=== PATIENT | female | born 2000 | race Caucasian/White ===

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

== ENCOUNTER 2019-03-18 18:19 | Emergency (ER) | payer SELFPAY ==
[2019-03-18] MEDS ORDERED: Alum Hydrox/Mag Hydrox/Simeth 30 ML, Lidocaine 2% 15 ML PO ONE ×2 (18:36)
[2019-03-18] MEDS ORDERED: Sodium Chloride 0.9% 10 ML Syringe FLUSH PRN (18:36)
--- NOTE | 2019-03-18 18:47 | EDM.PDOC ---
ED HPI GENERAL MEDICAL PROBLEM - General Chief Complaint: Chest Pain Stated Complaint: CHEST PAIN/ANXIETY Time Seen by Provider: 03/18/19 18:31 Source of Information: Reports: Patient History Limitations: Reports: No Limitations - History of Present Illness INITIAL COMMENTS - FREE TEXT/NARRATIVE: Since unfortunate 18-year-old female who presents emergency Department today with complaint of sharp sided left chest pain. Patient reports that symptoms started 2 years ago and progressively worsened since. That she has intermittent episodes of chest pain chest pains are sharp stabbing like pain nothing makes the pain better nothing makes the pain worse. The pains are intermittent she reports that she's been evaluated in the past for this and they "didn't find anything". She was placed on Zoloft for anxiety which did not help her symptoms at all. Left Chest Pain Score (Numeric/FACES): 8 - Related Data Allergies Allergy/AdvReac Type Severity Reaction Status Date / Time No Known Allergies Allergy Verified 03/18/19 18:33 Home Meds: Home Meds Norgestimate-Ethinyl Estradiol [Moore-Linyah 28 Tablet] 1 each PO DAILY 03/18/19 [History] Past Medical History - Past Health History Medical/Surgical History: Denies Medical/Surgical History - Infectious Disease History Infectious Disease History: Reports: None Social & Family History - Family History Family Medical History: Noncontributory - Tobacco Use Smoking Status *Q: Never Smoker - Caffeine Use Caffeine Use: Reports: Coffee, Energy Drinks - Recreational Drug Use Recreational Drug Use: No - Living Situation & Occupation Living situation: Reports: with Family Occupation: Student ED ROS GENERAL - Review of Systems Review Of Systems: See Below Constitutional: Denies: Fever, Chills Cardiovascular: Reports: Chest Pain ED EXAM, GENERAL - Physical Exam Exam: See Below Exam Limited By: No Limitations General Appearance: Alert, WD/WN, Anxious, Mild Distress Throat/Mouth: Normal Inspection, Normal Lips, Normal Teeth, Normal Gums, Normal Oropharynx, Normal Voice, No Airway Compromise Head: Atraumatic, Normocephalic Neck: Normal Inspection, Supple, Non-Tender, Full Range of Motion Respiratory/Chest: No Respiratory Distress, Lungs Clear, Normal Breath Sounds, No Accessory Muscle Use, Chest Non-Tender Cardiovascular: Normal Peripheral Pulses, Regular Rate, Rhythm, No Edema, No Gallop, No JVD, No Murmur, No Rub GI/Abdominal: Normal Bowel Sounds, Soft, Tender (Moderate right upper quadrant, moderate epigastric negative Mathews's) Back Exam: Normal Inspection, Full Range of Motion, NT Extremities: Normal Inspection, Normal Range of Motion, Non-Tender, Normal Capillary Refill, No Pedal Edema Neurological: Alert Skin Exam: Warm, Dry EKG INTERPRETATION EKG Date: 03/18/19 Time: 18:47 Rhythm: NSR Rate (Beats/Min): 88 Delton: Normal P-Wave: Present QRS: Normal ST-T: Normal QT: Normal Course - Vital Signs Last Recorded V/S: Last Vital Signs Temp 97.9 F 03/18/19 18:30 Pulse 90 03/18/19 18:30 Resp 16 03/18/19 18:30 BP 139/83 03/18/19 18:30 Pulse Ox 100 03/18/19 18:30 - Orders/Labs/Meds Orders: Active Orders 24 hr Category Date Time Status EKG Documentation Completion [RC] ASDIRECTED Care 03/18/19 18:36 Active Chest 2V [CR] Stat Exams 03/18/19 18:35 Taken Sodium Chloride 0.9% [Saline Flush] Med 03/18/19 18:36 Active 10 ml FLUSH ASDIRECTED PRN Saline Lock Insert [OM.PC] Stat Oth 03/18/19 18:36 Ordered EKG 12 Lead [EK] Stat Ther 03/18/19 18:35 Ordered Medication Orders Sodium Chloride (Saline Flush) 10 ml FLUSH ASDIRECTED PRN PRN Reason: Keep Vein Open Labs: Laboratory Tests 03/18/19 03/18/19 03/18/19 Range/Units 19:00 19:00 19:00 WBC 9.16 (3.98-10.04) K/mm3 RBC 4.59 (3.98-5.22) M/mm3 Hgb 13.3 (11.2-15.7) gm/dl Hct 38.9 (34.1-44.9) % MCV 84.7 (79.4-94.8) fl MCH 29.0 (25.6-32.2) pg MCHC 34.2 (32.2-35.5) g/dl RDW Std Deviation 36.9 (36.4-46.3) fL Plt Count 289 (182-369) K/mm3 MPV 10.4 (9.4-12.3) fl Neut % (Auto) 51.3 (34.0-71.1) % Lymph % (Auto) 40.1 (19.3-51.7) % Moore % (Auto) 5.7 (4.7-12.5) % Eos % (Auto) 2.6 (0.7-5.8) Baso % (Auto) 0.2 (0.1-1.2) % Neut # (Auto) 4.70 (1.56-6.13) K/mm3 Lymph # (Auto) 3.67 (1.18-3.74) K/mm3 Moore # (Auto) 0.52 H (0.24-0.36) K/mm3 Eos # (Auto) 0.24 (0.04-0.36) K/mm3 Baso # (Auto) 0.02 (0.01-0.08) K/mm3 Sodium 139 (136-145) mEq/L Potassium 3.3 L (3.5-5.1) mEq/L Chloride 102 (98-107) mEq/L Carbon Dioxide 25 (21-32) mEq/L Anion Gap 15.3 H (5-15) BUN 11 (7-18) mg/dL Creatinine 0.8 (0.55-1.02) mg/dL Est Cr Clr Drug Dosing 97.67 mL/min Estimated GFR (MDRD) > 60 (>60) mL/min BUN/Creatinine Ratio 13.8 L (14-18) Glucose 75 (74-106) mg/dL Calcium 9.5 (8.5-10.1) mg/dL Total Bilirubin 0.2 (0.2-1.0) mg/dL AST 19 (15-37) U/L ALT 22 (14-59) U/L Alkaline Phosphatase 69 (46-116) U/L Troponin I < 0.017 (0.00-0.056) ng/mL Total Protein 8.0 (6.4-8.2) g/dl Albumin 3.8 (3.4-5.0) g/dl Globulin 4.2 gm/dL Albumin/Globulin Ratio 0.9 L (1-2) Lipase 107 (73-393) U/L HCG, Qual Negative (NEGATIVE) Urine Color (Yellow) Urine Appearance (Clear) Urine pH (5.0-8.0) Ur Specific Ord (1.005-1.030) Urine Protein (Negative) Urine Glucose (UA) (Negative) Urine Ketones (Negative) Urine Occult Blood (Negative) Urine Nitrite (Negative) Urine Bilirubin (Negative) Urine Urobilinogen (0.2-1.0) Ur Leukocyte Esterase (Negative) 03/18/19 Range/Units 19:35 WBC (3.98-10.04) K/mm3 RBC (3.98-5.22) M/mm3 Hgb (11.2-15.7) gm/dl Hct (34.1-44.9) % MCV (79.4-94.8) fl MCH (25.6-32.2) pg MCHC (32.2-35.5) g/dl RDW Std Deviation (36.4-46.3) fL Plt Count (182-369) K/mm3 MPV (9.4-12.3) fl Neut % (Auto) (34.0-71.1) % Lymph % (Auto) (19.3-51.7) % Moore % (Auto) (4.7-12.5) % Eos % (Auto) (0.7-5.8) Baso % (Auto) (0.1-1.2) % Neut # (Auto) (1.56-6.13) K/mm3 Lymph # (Auto) (1.18-3.74) K/mm3 Moore # (Auto) (0.24-0.36) K/mm3 Eos # (Auto) (0.04-0.36) K/mm3 Baso # (Auto) (0.01-0.08) K/mm3 Sodium (136-145) mEq/L Potassium (3.5-5.1) mEq/L Chloride (98-107) mEq/L Carbon Dioxide (21-32) mEq/L Anion Gap (5-15) BUN (7-18) mg/dL Creatinine (0.55-1.02) mg/dL Est Cr Clr Drug Dosing mL/min Estimated GFR (MDRD) (>60) mL/min BUN/Creatinine Ratio (14-18) Glucose (74-106) mg/dL Calcium (8.5-10.1) mg/dL Total Bilirubin (0.2-1.0) mg/dL AST (15-37) U/L ALT (14-59) U/L Alkaline Phosphatase (46-116) U/L Troponin I (0.00-0.056) ng/mL Total Protein (6.4-8.2) g/dl Albumin (3.4-5.0) g/dl Globulin gm/dL Albumin/Globulin Ratio (1-2) Lipase (73-393) U/L HCG, Qual (NEGATIVE) Urine Color Yellow (Yellow) Urine Appearance Clear (Clear) Urine pH 6.5 (5.0-8.0) Ur Specific Ord 1.020 (1.005-1.030) Urine Protein Negative (Negative) Urine Glucose (UA) Negative (Negative) Urine Ketones Negative (Negative) Urine Occult Blood Negative (Negative) Urine Nitrite Negative (Negative) Urine Bilirubin Negative (Negative) Urine Urobilinogen 0.2 (0.2-1.0) Ur Leukocyte Esterase Negative (Negative) Meds: Medications Generic Name Dose Route Start Last Admin Trade Name Freq PRN Reason Stop Dose Admin Sodium Chloride 10 ml 03/18/19 18:36 Saline Flush FLUSH ASDIRECTED PRN Keep Vein Open Discontinued Medications Generic Name Dose Route Start Last Admin Trade Name Freq PRN Reason Stop Dose Admin Al Hydroxide/Mg Hydroxide 30 0 ml 03/18/19 18:36 03/18/19 18:50 ml/ Lidocaine HCl 15 ml PO 03/18/19 18:37 45 ml ONETIME ONE Administration - Re-Assessments/Exams Free Text/Narrative Re-Assessment/Exam: 03/18/19 20:11 Chest x-ray interpreted by me NAD Free Text/Narrative Re-Assessment/Exam: 03/18/19 20:46 Symptoms have improved dramatically with GI cocktail and almost resolved we'll discharge to home and have patient follow up outpatient with PCP Departure - Departure Time of Disposition: 20:46 Disposition: Home, Self-Care 01 Condition: Good Clinical Impression: GERD (gastroesophageal reflux disease) Qualifiers: Esophagitis presence: with esophagitis Qualified Code(s): K21.0 - Gastro- esophageal reflux disease with esophagitis Instructions: Gastroesophageal Reflux Disease, Adult Referrals: Sera Amezcua MD [Primary Care Provider] - Forms: ED Department Discharge Additional Instructions: Home, rest, Prilosec OTC daily for one month, Tums as needed for pain, return as needed for worsening condition Sepsis Event Note - Evaluation Sepsis Screening Result: No Definite Risk - Focused Exam Vital Signs: Vital Signs Temp Pulse Resp BP Pulse Ox 03/18/19 18:30 97.9 F 90 16 139/83 100 Date Exam was Performed: 03/18/19 Time Exam was Performed: 20:46 - My Orders Last 24 Hours: My Active Orders 03/18/19 18:35 Chest 2V [CR] Stat EKG 12 Lead [EK] Stat 03/18/19 18:36 EKG Documentation Completion [RC] ASDIRECTED Sodium Chloride 0.9% [Saline Flush] 10 ml FLUSH ASDIRECTED PRN Saline Lock Insert [OM.PC] Stat - Assessment/Plan Last 24 Hours: My Active Orders 03/18/19 18:35 Chest 2V [CR] Stat EKG 12 Lead [EK] Stat 03/18/19 18:36 EKG Documentation Completion [RC] ASDIRECTED Sodium Chloride 0.9% [Saline Flush] 10 ml FLUSH ASDIRECTED PRN Saline Lock Insert [OM.PC] Stat
[2019-03-18 21:19] VITALS: BP 125/75; PULSE 85
--- NOTE | 2019-03-19 07:58 | CR ---
Chest: Two views of the chest were obtained. Comparison: No prior chest imaging is available. Heart size and mediastinum are normal. Lungs are clear. Bony structures are unremarkable. Impression: 1. Nothing acute is seen on two-view chest x-ray. Diagnostic code #1 This report was dictated in [place] Standard Time
== END 2019-03-18 21:17 | disposition home or self-care (01) ==
LOC: JD.ED 18:19
DX: F41.9 Anxiety disorder, unspecified (principal); Z79.899 Other long term (current) drug therapy; K21.0 Gastro-esophageal reflux disease with esophagitis
CPT/HCPCS: 36415; 71046; 80053; 81003; 83690; 84484; 84703; 85025; 93005; 99285; A9270; 93010; 99283

== ENCOUNTER 2020-01-09 12:18 | Emergency (ER) | payer BC ==
[2020-01-09 12:29] VITALS: BP 137/94; PULSE 126
[2020-01-09] MEDS ORDERED: LORazepam 2 MG/ML SDV IV PRN (13:11)
--- NOTE | 2020-01-09 13:11 | EDM.PDOC ---
ED HPI GENERAL MEDICAL PROBLEM - General Chief Complaint: Neurological Problem Stated Complaint: [facility] Time Seen by Provider: 01/09/20 12:56 Source of Information: Reports: Patient, EMS, Other History Limitations: Reports: No Limitations - History of Present Illness INITIAL COMMENTS - FREE TEXT/NARRATIVE: 19-year-old female presents to the ED per [facility] [place]. The history was provided by a friend who I was able to speak with on the phone. She indicates that they were delivering food at the mall today and Xiao stated that she started to feel unwell with nausea and pressure in the epigastrium. Once they got back to the operating center she started to feel lightheaded dizzy and then her eyes started to roll back up into her head and her friend aided her to the floor so that she did not fall. The plan was going to get her to sit in a chair but he never made it that far. When she got to the floor she was staring off into space and then started to have tonic-clonic movements involving all of her limbs that lasted about 45 seconds. She was then postictal for a good 10 to 15 minutes. When paramedics arrived they were able to get her up and able to walk her out to the ambulance. Patient has no recollection of what is happened to her. She denies losing control of her bowel or bladder. She is currently menstruating. She did not bite her tongue. She suffered no injuries and has no pain at this time Onset: Today, Sudden Onset Date: 01/09/20 Onset Time: 12:05 Duration: Minutes:, Improving Location: Reports: Generalized (History obtained from her friend who was with her at the time of the incident indicates that she indicated that she was not feeling well she was grabbing her chest at times feeling somewhat nauseated or a weird feeling in her stomach. As she was standing getting ready to sit down her eyes rolled back up into the her head and she was staring off into space and then she collapsed her friend aided her to the floor without falling or injury. When she was on the floor she was unresponsive to verbal and physical stimuli. She then developed generalized tonic-clonic seizure activity that lasted approximately 45 seconds. The patient of course has no recollection of what is happened to her. It was a good 15 minutes or so before she could talk and make sense and get up and start to move her limbs indicating that she was indeed postictal. She has never had a seizure before.) Quality: Reports: Other (Generalized tonic-clonic seizure) Severity: Moderate Improves with: Reports: Other (Improved by the time she got to the hospital she was able to walk to the ambulance.) Worsens with: Reports: None Context: Reports: Other (On scene his seizure recurrence this morning while in the workplace.). Denies: Activity, Exercise, Lifting, Sick Contact, Trauma Associated Symptoms: Reports: Confusion, Malaise, Weakness. 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 (see below) - Related Data Allergies Allergy/AdvReac Type Severity Reaction Status Date / Time No Known Allergies Allergy Verified 01/09/20 12:29 Home Meds: Home Meds norgestimate-ethinyl estradioL [Tensas-Linyah 28 Tablet] 1 each PO DAILY 03/18/19 [History] Past Medical History - Past Health History Medical/Surgical History: Denies Medical/Surgical History - Infectious Disease History Infectious Disease History: Reports: None Social & Family History - Family History Family Medical History: No Pertinent Family History - Tobacco Use Tobacco Use Status *Q: Never Tobacco User Second Hand Smoke Exposure: No - Caffeine Use Caffeine Use: Reports: None - Recreational Drug Use Recreational Drug Use: No - Living Situation & Occupation Living situation: Reports: with Family Occupation: Student ED ROS GENERAL - Review of Systems Review Of Systems: See Below Constitutional: Reports: Malaise, Weakness, Fatigue, Weight Loss. Denies: Fever, Chills HEENT: Reports: No Symptoms Respiratory: Reports: No Symptoms Cardiovascular: Reports: Chest Pain (Getting sharp stabbing chest pains off and on for several months. Told it was heartburn. Clinically it is more of a pleurodynia likely from inflammation of the). Denies: Dyspnea on Exertion, Palpitations ( periosteum of the ribs as it is in the midclavicular line primarily on the left side.) Endocrine: Reports: No Symptoms GI/Abdominal: Reports: No Symptoms : Reports: Other Musculoskeletal: Reports: No Symptoms (Early on her menstrual cycle. On time and as expected.) Skin: Reports: No Symptoms Neurological: Reports: Confusion. Denies: Headache (As to what is happened to her.) Psychiatric: Reports: Anxiety Hematologic/Lymphatic: Reports: No Symptoms Immunologic: Reports: No Symptoms - Physical Exam Exam: See Below Exam Limited By: No Limitations General Appearance: Alert, WD/WN, Anxious, Mild Distress (Since she cannot remember what is happened to her.), Other (Temperature is 36.4 heart rate 126 in sinus respiratory rate is 26 with O2 sats 100% on room air BP 1 3794.) Eye Exam: Bilateral Eye: Normal Inspection, PERRL Ears: Normal TMs Throat/Mouth: Normal Inspection, Normal Lips, Normal Teeth, Normal Oropharynx. No: Evidence of Tongue Biting Head Exam: Atraumatic, Normocephalic, Other Neck: Normal Inspection, Supple (No overt signs of any head or facial trauma.), Non-Tender, Full Range of Motion. No: Lymphadenopathy (L), Lymphadenopathy (R) Respiratory/Chest: No Respiratory Distress, Lungs Clear, Normal Breath Sounds, Chest Non-Tender Cardiovascular: Normal Peripheral Pulses, Regular Rate, Rhythm, No Edema, No Gallop, No Murmur, No Rub GI/Abdominal: Normal Bowel Sounds, Soft, Non-Tender, No Organomegaly, No Abnormal Bruit, No Mass, Pelvis Stable, Other (No surgical scars) Neuro Exam (Abbreviated): Alert, Oriented, CN II-XII Intact, Normal Cognition, Normal Gait, No Motor/Sensory Deficits DTR: 1+: Bicep (R), Bicep (L), Patella (R), Patella (L), Achilles (R), Achilles (L) Back Exam: Normal Inspection, Full Range of Motion. No: CVA Tenderness (L), CVA Tenderness (R) Extremities: Normal Inspection, Normal Range of Motion, Non-Tender, No Pedal Edema Psychiatric: Normal Affect, Normal Mood Skin Exam: Warm, Dry, Intact, Normal Color, No Rash #1 Interpretation EKG Date: 01/09/20 Time: 13:23 Rhythm: Other Rate (Beats/Min): 102 Vona: Normal P-Wave: Present QRS: Other (Initial poor R wave progression may be due to lead placement.) ST-T: Normal QT: Prolonged (Mildly prolonged) EKG Interpretation Comments: Borderline ECG Course - Vital Signs Last Recorded V/S: Last Vital Signs Temp 36.4 C 01/09/20 12:26 Pulse 126 H 01/09/20 12:26 Resp 26 H 01/09/20 12:26 BP 137/94 H 01/09/20 12:26 Pulse Ox 100 01/09/20 12:26 Orthostatic Blood Pressure [ 145/73 Standing] Orthostatic Blood Pressure [ 136/83 Sitting] Orthostatic Blood Pressure [ 136/78 Supine] - Orders/Labs/Meds Orders: Active Orders 24 hr Category Date Time Status EKG Documentation Completion [RC] STAT Care 01/09/20 13:10 Active Head wo Cont [CT] Stat Exams 01/09/20 13:08 Taken Dextrose 5%-0.9% NaCl [Dextrose 5%-Normal Saline] 1,000 Med 01/09/20 13:15 Active ml IV ASDIRECTED LORazepam [Ativan] Med 01/09/20 13:11 Active 1 mg IV Q6H PRN Medication Orders Dextrose/Sodium Chloride (Dextrose 5%-Normal Saline) 1,000 mls @ 125 mls/hr IV ASDIRECTED PAULINA Last Admin: 01/09/20 13:33 Dose: 125 mls/hr Documented by: CHANO Lorazepam (Ativan) 1 mg IV Q6H PRN PRN Reason: Anxiety Last Admin: 01/09/20 13:33 Dose: 1 mg Documented by: CHANO Labs: Laboratory Tests 01/09/20 01/09/20 01/09/20 Range/Units 13:50 13:50 13:50 WBC 8.86 (3.98-10.04) K/mm3 RBC 4.39 (3.98-5.22) M/mm3 Hgb 12.7 (11.2-15.7) gm/dl Hct 38.1 (34.1-44.9) % MCV 86.8 (79.4-94.8) fl MCH 28.9 (25.6-32.2) pg MCHC 33.3 (32.2-35.5) g/dl RDW Std Deviation 39.9 (36.4-46.3) fL Plt Count 250 (182-369) K/mm3 MPV 9.9 (9.4-12.3) fl Neut % (Auto) 76.7 H (34.0-71.1) % Lymph % (Auto) 16.8 L (19.3-51.7) % [place] % (Auto) 5.5 (4.7-12.5) % Eos % (Auto) 0.7 (0.7-5.8) Baso % (Auto) 0.2 (0.1-1.2) % Neut # (Auto) 6.79 H (1.56-6.13) K/mm3 Lymph # (Auto) 1.49 (1.18-3.74) K/mm3 [place] # (Auto) 0.49 H (0.24-0.36) K/mm3 Eos # (Auto) 0.06 (0.04-0.36) K/mm3 Baso # (Auto) 0.02 (0.01-0.08) K/mm3 Lactic Acid 1.6 (0.4-2.0) mmol/L Magnesium 2.0 (1.8-2.4) mg/dl Creatine Kinase 167 (26-192) U/L C-Reactive Protein 0.2 (<1.0) mg/dL HCG, Qual (NEGATIVE) Urine Color (Yellow) Urine Appearance (Clear) Urine pH (5.0-8.0) Ur Specific [place] (1.005-1.030) Urine Protein (Negative) Urine Glucose (UA) (Negative) Urine Ketones (Negative) Urine Occult Blood (Negative) Urine Nitrite (Negative) Urine Bilirubin (Negative) Urine Urobilinogen (0.2-1.0) Ur Leukocyte Esterase (Negative) Urine RBC (0-5) /hpf Urine WBC (0-5) /hpf Ur Squamous Epith Cells (0-5) /hpf Urine Bacteria (FEW) /hpf Urine Mucus (FEW) /hpf Urine Opiates Screen (EZWGZU=582) Ur Buprenorphine Scrn (CUTOFF=10) Ur Oxycodone Screen (VYD9RJ=377) Urine Methadone Screen (UJQDSF=980) Ur Propoxyphene Screen (LVXEUF=082) Ur Barbiturates Screen (HXUYNB=655) Ur Tricyclics Screen (THGZDK=325) Ur Phencyclidine Scrn (CUTOFF=25) Ur Amphetamine Screen (IZMACV=438) U Methamphetamines Scrn (QJYWEA=458) U Benzodiazepines Scrn (RHKCPE=561) U Cocaine Metab Screen (GABYUK=146) U Marijuana (THC) Screen (CUTOFF=50) 01/09/20 01/09/20 01/09/20 Range/Units 13:50 15:30 15:30 WBC (3.98-10.04) K/mm3 RBC (3.98-5.22) M/mm3 Hgb (11.2-15.7) gm/dl Hct (34.1-44.9) % MCV (79.4-94.8) fl MCH (25.6-32.2) pg MCHC (32.2-35.5) g/dl RDW Std Deviation (36.4-46.3) fL Plt Count (182-369) K/mm3 MPV (9.4-12.3) fl Neut % (Auto) (34.0-71.1) % Lymph % (Auto) (19.3-51.7) % [place] % (Auto) (4.7-12.5) % Eos % (Auto) (0.7-5.8) Baso % (Auto) (0.1-1.2) % Neut # (Auto) (1.56-6.13) K/mm3 Lymph # (Auto) (1.18-3.74) K/mm3 [place] # (Auto) (0.24-0.36) K/mm3 Eos # (Auto) (0.04-0.36) K/mm3 Baso # (Auto) (0.01-0.08) K/mm3 Lactic Acid (0.4-2.0) mmol/L Magnesium (1.8-2.4) mg/dl Creatine Kinase (26-192) U/L C-Reactive Protein (<1.0) mg/dL HCG, Qual Negative (NEGATIVE) Urine Color Yellow (Yellow) Urine Appearance Clear (Clear) Urine pH 8.0 (5.0-8.0) Ur Specific [place] 1.020 (1.005-1.030) Urine Protein 1+ H (Negative) Urine Glucose (UA) Negative (Negative) Urine Ketones Negative (Negative) Urine Occult Blood Negative (Negative) Urine Nitrite Negative (Negative) Urine Bilirubin Negative (Negative) Urine Urobilinogen 0.2 (0.2-1.0) Ur Leukocyte Esterase Negative (Negative) Urine RBC Not seen (0-5) /hpf Urine WBC 0-5 (0-5) /hpf Ur Squamous Epith Cells 0-5 (0-5) /hpf Urine Bacteria Few (FEW) /hpf Urine Mucus Few (FEW) /hpf Urine Opiates Screen Negative (BCNZPH=885) Ur Buprenorphine Scrn Negative (CUTOFF=10) Ur Oxycodone Screen Negative (YIY3SP=441) Urine Methadone Screen Negative (THNTWF=857) Ur Propoxyphene Screen Negative (VQTNAP=314) Ur Barbiturates Screen Negative (GOLPTM=081) Ur Tricyclics Screen Negative (RTSJBO=154) Ur Phencyclidine Scrn Negative (CUTOFF=25) Ur Amphetamine Screen Negative (HQVPGV=728) U Methamphetamines Scrn Negative (BSTTLC=274) U Benzodiazepines Scrn Negative (AEOVKA=026) U Cocaine Metab Screen Negative (VJSSIV=861) U Marijuana (THC) Screen Negative (CUTOFF=50) Meds: Medications Generic Name Dose Route Start Last Admin Trade Name Freq PRN Reason Stop Dose Admin Dextrose/Sodium Chloride 1,000 mls @ 125 mls/hr 01/09/20 13:15 01/09/20 13:33 Dextrose 5%-Normal Saline IV 125 mls/hr ASDIRECTED PAULINA Administration Lorazepam 1 mg 01/09/20 13:11 01/09/20 13:33 Ativan IV 1 mg Q6H PRN Administration Anxiety - Radiology Interpretation Free Text/Narrative:: 19-year-old female brought to the ED by [facility] after she [place] the [place]. I obtained the history from a friend who was with her the whole time of this incident. She indicated that Xiao indicated she was not feeling well she had a funny feeling in the pit of her stomach perhaps some nausea and they went back to where the started serving food from. She started to feel lightheaded and they were going to have her sit down when she suddenly seemed to stare off into space and collapse. Her friend caught her and aided her to the ground so she did not fall or get hurt. Her eyes rolled back into her head and shortly thereafter she moaned and then exhibited tonic-clonic seizure activity in all 4 limbs. This was estimated to have lasted about 45 seconds. The patient has no recollection of what is happened to her and she has never had a previous seizure. She is currently menstruating. She is on no medications that would lower her seizure threshold she denies any street drug use. Plan I am going to give her Ativan 1 mg IV as she is still quite anxious. Tachypneic at 26/min tachycardic at 126/min. IV D5 normal saline. She admits that she did have cereal for breakfast this morning. Will have CT head performed and routine labs collected and a urine drug screen. - Re-Assessments/Exams Free Text/Narrative Re-Assessment/Exam: 01/09/20 14:22 Hematology is back revealing a normal white count at 8.86. It is showing 76.7% neutrophils on the auto differential. Hemoglobin is 12.7 with hematocrit of 38.1. Platelet counts 250,000. The scan of the brain reveals it to be normal with no hemorrhage and no unremarkable white matter disease. No mass-effect no ventriculomegaly. Bones show no acute fractures. Visualized sinuses are unremarkable no fluid levels no acute intracranial abnormality appreciated 01/09/20 15:49 Lactic acid is elevated at 1.6 which more or less suggest she likely did suffer a short-lived seizure. Magnesium is 2.0 total CPK is 167 C- reactive protein is 0.2 beta hCG was negative. Urine is yellow 1+ proteinuria but no signs of infection. She will therefore be discharged to home. She is to make a follow-up appointment with her primary care physician to have an MRI as an outpatient and an ECG as an outpatient. Since it is her first seizure no antiseizure medication is indicated at this point time. She is advised to take precautions in terms that she should not drive a motor vehicle until after the above tests have been completed nor should she bathe unattended or swim in a swimming pool alone. Understood these instructions quite well. She will be off work for the next 3 to 4 days. She works for [employer] here in [place]. We will tentatively try and get her in for an EEG and an MRI as an outpatient and then have her follow-up with Dr. Caitlin Proctor who can arrange neurological consultation if needed. If both of those tests are normal then adopt a [id number] approach is usually indicated to see if another seizure occurs which would mean starting antiseizure medications. Be released in the care of a friend. Her mom is apparently out of the city at this time Departure - Departure Time of Disposition: 15:59 Disposition: Home, Self-Care 01 Condition: Fair Clinical Impression: New onset seizure without head trauma - Discharge Information *PRESCRIPTION DRUG MONITORING PROGRAM REVIEWED*: Not Applicable *COPY OF PRESCRIPTION DRUG MONITORING REPORT IN PATIENT WALLACE: Not Applicable Instructions: Seizure, Adult, [id number] Referrals: PCP,None [Primary Care Provider] - Forms: ED Department Discharge Additional Instructions: Evaluation in the emergency room today in regards to syncope collapse likely secondary to a [place] the mall today. Your friend who is with you was able to describe the events of what transpired and it definitely sounds like you experienced shaking movements in all of your extremities that lasted approximately 45 seconds after staring off into space and then suddenly collapsing. She caught you before you hit the floor and therefore you did not get hurt. She again indicated that your eyes rolled back in your head and then he became stiff and then diffuse developed clonic repetitive movements of all of your extremities which is a classic grand mal seizure. Investigations through the emergency room today by CT scan scan of the brain was completely normal no laboratory abnormalities were identified either. You require further investigations by way of an MRI of the brain and an EEG exam. If both of these are normal then we adopt a [id number]-bqt-[id number] approach as to whether or not you were going to ask parents another seizure. Over 85% of patients never experience another seizure. However if you experience 2 seizures there is a good chance that you will go on to help further seizures. Suggest arranging a follow-up appointment to see Dr. Caitlin Proctor in the family medicine unit here in the hospital for the results of the tests in about a week after the EEG is completed. Is call [phone] to arrange an appointment with Dr. Proctor. Sepsis Event Note (ED) - Evaluation Sepsis Screening Result: No Definite Risk - Focused Exam Vital Signs: Vital Signs Temp Pulse Resp BP Pulse Ox 01/09/20 12:26 36.4 C 126 H 26 H 137/94 H 100 - My Orders Last 24 Hours: My Active Orders 01/09/20 13:08 Head wo Cont [CT] Stat 01/09/20 13:10 EKG Documentation Completion [RC] STAT 01/09/20 13:11 LORazepam [Ativan] 1 mg IV Q6H PRN 01/09/20 13:15 Dextrose 5%-0.9% NaCl [Dextrose 5%-Normal Saline] 1,000 ml IV ASDIRECTED - Assessment/Plan Last 24 Hours: My Active Orders 01/09/20 13:08 Head wo Cont [CT] Stat 01/09/20 13:10 EKG Documentation Completion [RC] STAT 01/09/20 13:11 LORazepam [Ativan] 1 mg IV Q6H PRN 01/09/20 13:15 Dextrose 5%-0.9% NaCl [Dextrose 5%-Normal Saline] 1,000 ml IV ASDIRECTED
[2020-01-09] MEDS ORDERED: Dextrose 5%-0.9% NaCl 1,000 ML IV SCH (13:15)
--- NOTE | 2020-01-11 10:27 | CT ---
PROCEDURE INFORMATION: Exam: CT Head Without Contrast Exam date and time: 01/09/2020 2:38 PM Age: 19 years old Clinical indication: Other: Seizure TECHNIQUE: Imaging protocol: Computed tomography of the head without contrast. Radiation optimization: All CT scans at this facility use at least one of these dose optimization techniques: automated exposure control; mA and/or kV adjustment per patient size (includes targeted exams where dose is matched to clinical indication); or iterative reconstruction. COMPARISON: No relevant prior studies available. FINDINGS: Brain: Normal. No hemorrhage. Unremarkable white matter. No mass effect. Cerebral ventricles: No ventriculomegaly. Bones/joints: Unremarkable. No acute fracture. Paranasal sinuses: Visualized sinuses are unremarkable. No fluid levels. Mastoid air cells: Visualized mastoid air cells are well aerated. Soft tissues: Unremarkable. IMPRESSION: No acute intracranial abnormality. Thank you for allowing us to participate in the care of your patient. Dictated and Authenticated by: Stephen Garcia MD 01/09/2020 3:55 PM Central Time ([place] & [place]) [facility]
== END 2020-01-09 16:21 | disposition home or self-care (01) ==
LOC: JD.ED 12:18
DX: R56.9 Unspecified convulsions (principal)
CPT/HCPCS: 36415; 70450; 80306; 81001; 82550; 83605; 83735; 84703; 85025; 86140; 93005; 96374; 99285; J2060; J7042; 93010; 99284

== ENCOUNTER 2022-01-06 02:53 | Emergency (ER) | payer BC ==
[2022-01-06 03:27] VITALS: BP 123/83; PULSE 78
== END 2022-01-06 03:36 | disposition home or self-care (01) ==
LOC: JD.ED 02:53
DX: F10.929 Alcohol use, unspecified with intoxication, unspecified (principal); F41.0 Panic disorder [episodic paroxysmal anxiety]; Z72.0 Tobacco use
CPT/HCPCS: 99284

== ENCOUNTER 2023-12-19 11:48 | Inpatient (IN) | payer BC ==
[~2023-12-19 11:48] MED LIST: Bupivacaine 0.25% 10 ML SDV ONE; Sodium Chloride 0.9% 10 ML SDV ONE
[2023-12-19] MEDS ORDERED: Sodium Chloride 0.9% 10 ML Syringe FLUSH PRN (12:02)
[2023-12-19] MEDS ORDERED: Promethazine 25 MG Tab PO PRN (12:02)
[2023-12-19] MEDS ORDERED: Lidocaine 1% 50 ML MDV INJECT PRN (12:02)
[2023-12-19] MEDS ORDERED: Oxytocin/0.9 % Sodium Chloride 30 UNIT/500 ML BAG IV SCH (12:15)
[2023-12-19] MEDS: Misoprostol 25 MCG (1/4 of 100 MCG) Tab VAG PRN (12:30)
[2023-12-19 12:34] LABS: BASOPHILS PERCENT AUTO 0.2 % (0.0-1.0); EOSINOPHILS PERCENT AUTO 0.5 % (0.0-6.0); HEMATOCRIT 32.2 % (37.0-47.0); HEMOGLOBIN 10.8 gm/dl (12.0-16.0); IMMATURE GRAN ABSOLUTE AUTO 0.11 K/mm3 (0.00-0.05); IMMATURE GRAN PERCENT AUTO 1.4 % (0.0-0.4); LYMPHOCYTES ABSOLUTE AUTO 1.9 K/mm3 (1.0-4.8); LYMPHOCYTES PERCENT AUTO 23.3 % (24.0-44.0); MEAN CORPUSCULAR HEMOGLOBIN 26.3 pg (28.0-32.0); MEAN CORPUSCULAR HGB CONC 33.5 g/dl (32.0-36.0); MEAN CORPUSCULAR VOLUME 78.3 fl (83.0-99.0); MEAN PLATELET VOLUME 11.1 fl (9.4-12.3); MONOCYTES ABSOLUTE AUTO 0.5 K/mm3 (0.0-0.8); MONOCYTES PERCENT AUTO 5.7 % (0.0-8.0); NEUTROPHILS ABSOLUTE AUTO 5.6 K/mm3 (1.8-7.7); NEUTROPHILS PERCENT AUTO 68.9 % (41.0-71.0); PLATELET COUNT,PLT 201 K/mm3 (150-400); RED BLOOD CELL COUNT 4.11 M/mm3 (4.10-5.30); WHITE BLOOD CELL COUNT,WBC 8.08 K/mm3 (3.9-11.3)
[2023-12-19 12:57] LABS: A/G RATIO 0.7 (1-2); ALANINE AMINOTRANSFERASE,ALT 19 U/L (14-59); ALBUMIN 2.6 g/dl (3.4-5.0); ALKALINE PHOSPHATASE 236 U/L (46-116); ANION GAP 17.1 (5-15); ASPARTATE AMNIOTRANSFERASE,AST 22 U/L (15-37); BILIRUBIN TOTAL 0.3 mg/dL (0.2-1.0); BLOOD UREA NITROGEN,BUN 16 mg/dL (7-18); BUN/CREATININE RATIO 22.9 (14-18); CARBON DIOXIDE,CO2 19 mEq/L (21-32); CHLORIDE,CL 103 mEq/L (98-107); CREATININE 0.7 mg/dL (0.55-1.02); ESTIMATED GFR 124 mL/min (>60); GLUCOSE RANDOM 103 mg/dL (70-99); POTASSIUM,K 4.1 mEq/L (3.5-5.1); PROTEIN TOTAL,TP 6.6 g/dl (6.4-8.2); SODIUM,NA 135 mEq/L (136-145)
[2023-12-19 14:41] LABS: CREATININE,URINE RAND 50.7 mg/dL (30.0-125.0); PROTEIN,URINE RANDOM 32.5 mg/dL (0.0-11.8)
[2023-12-19] MEDS ORDERED: ePHEDrine 50 MG/ML SDV IVPUSH PRN (15:25)
[2023-12-19] MEDS ORDERED: diphenhydrAMINE 50 MG/ML SDV IVPUSH PRN (15:25)
[2023-12-19] MEDS: Nalbuphine 10 MG/1 ML Vial IVPUSH PRN (22:48)
[2023-12-19] MEDS: Lactated Ringers 1,000 ML IV SCH (22:48)
[2023-12-20] MEDS: Misoprostol 25 MCG (1/4 of 100 MCG) Tab VAG ONE ×2 (01:51→19:00)
[2023-12-20] MEDS: Oxytocin/0.9 % Sodium Chloride 30 UNIT/500 ML BAG IV SCH (01:59)
[2023-12-20] MEDS: fentaNYL 100 MCG/2 ML SDV EPIDUR PRN (03:38)
[2023-12-20] MEDS: Bupivacaine/fentaNYL/NS 100 ML Bag EPIDUR PRN (03:39)
[2023-12-20] MEDS: Ondansetron 4 MG/2 ML SDV IVPUSH PRN (07:55)
[2023-12-20] MEDS: Citalopram 20 MG Tab PO SCH (11:36)
[2023-12-20] MEDS ORDERED: Morphine PF 10 MG/10 ML SDV ONE (12:20)
[2023-12-20] MEDS ORDERED: Lactated Ringers 1,000 ML ONE (12:20)
[2023-12-20] MEDS ORDERED: Ondansetron 4 MG/2 ML SDV ONE ×2 (12:20→13:04)
[2023-12-20] MEDS ORDERED: Ketorolac 30 MG/ML SDV ONE (12:20)
[2023-12-20] MEDS ORDERED: ceFAZolin 2 GM Vial ONE (12:20)
[2023-12-20] MEDS ORDERED: Sodium Bicarbonate 8.4% 50 MEQ/50 ML SDV ONE (12:23)
[2023-12-20] MEDS ORDERED: Lidocaine 2% with EPINEPHrine 1:200,000 20 ML SDV ONE (12:23)
[2023-12-20] MEDS: Citric Acid/Sodium Citrate Solution 30 ML Cup PO ONE (12:26)
[2023-12-20] MEDS: Metoclopramide 10 MG/2 ML SDV IVPUSH ONE (12:27)
[2023-12-20] MEDS: Azithromycin 500 MG in Sodium Chloride 0.9% 250 ML IV STA (12:30)
[2023-12-20] MEDS ORDERED: Dexamethasone 4 MG/ML SDV ONE (12:54)
[2023-12-20] MEDS ORDERED: Phenylephrine 1% 10 MG/ML SDV ONE (13:10)
[2023-12-20] MEDS ORDERED: droPERidol 5 MG/2 ML SDV ONE (13:45)
[2023-12-20 14:28] LABS: HEMATOCRIT 25.1 % (37.0-47.0); HEMOGLOBIN 8.4 gm/dl (12.0-16.0); MEAN CORPUSCULAR HEMOGLOBIN 26.6 pg (28.0-32.0); MEAN CORPUSCULAR HGB CONC 33.5 g/dl (32.0-36.0); MEAN CORPUSCULAR VOLUME 79.4 fl (83.0-99.0); MEAN PLATELET VOLUME 11.5 fl (9.4-12.3); NRBC ABSOLUTE 0.02 (0.00-0.02); NRBC PERCENT 0.1 % (0.0-0.2); PLATELET COUNT,PLT 160 K/mm3 (150-400); RED BLOOD CELL COUNT 3.16 M/mm3 (4.10-5.30); WHITE BLOOD CELL COUNT,WBC 14.34 K/mm3 (3.9-11.3)
[2023-12-20 14:29] LABS: INR 0.96; PROTHROMBIN TIME 10.2 SECONDS (9.7-12.0)
[2023-12-20 14:31] LABS: PTT,PARTIAL THROMBOPLSTIN TIME 24.6 SECONDS (21.7-31.4)
[2023-12-20] MEDS ORDERED: Naloxone 0.4 MG/ML SDV IVPUSH PRN (15:17)
[2023-12-20] MEDS ORDERED: Docusate Sodium 100 MG Cap PO PRN (15:17)
[2023-12-20] MEDS ORDERED: Acetaminophen/oxyCODONE 325-5 MG Tab PO PRN (15:17)
[2023-12-20] MEDS ORDERED: diphenhydrAMINE 50 MG/ML SDV IVPUSH PRN (15:17)
[2023-12-20] MEDS ORDERED: ePHEDrine 50 MG/ML SDV IVPUSH PRN (15:17)
[2023-12-20] MEDS: Dextrose 5%-Lactated Ringers 1,000 ML IV SCH (15:26)
[2023-12-20] MEDS: fentaNYL 100 MCG/2 ML SDV EPIDUR ONE (19:00)
[2023-12-20] MEDS: Sodium Chloride 0.9% 10 ML Syringe FLUSH SCH (19:00)
[2023-12-20] MEDS: ceFAZolin 2 GM in Sodium Chloride 0.9% 50 ML IV ONE (19:01)
[2023-12-20] MEDS: Ketorolac 30 MG/ML SDV IVPUSH SCH (20:43)
[2023-12-20] MEDS: Ondansetron 4 MG/2 ML SDV IV PRN (20:48)
[2023-12-21 05:51] LABS: HEMATOCRIT 23.1 % (37.0-47.0); HEMOGLOBIN 7.7 gm/dl (12.0-16.0); MEAN CORPUSCULAR HEMOGLOBIN 26.3 pg (28.0-32.0); MEAN CORPUSCULAR HGB CONC 33.3 g/dl (32.0-36.0); MEAN CORPUSCULAR VOLUME 78.8 fl (83.0-99.0); MEAN PLATELET VOLUME 11.6 fl (9.4-12.3); PLATELET COUNT,PLT 179 K/mm3 (150-400); RED BLOOD CELL COUNT 2.93 M/mm3 (4.10-5.30); WHITE BLOOD CELL COUNT,WBC 16.05 K/mm3 (3.9-11.3)
[2023-12-21] MEDS: Acetaminophen 325 MG Tab PO PRN (11:25)
[2023-12-21] MEDS: Ibuprofen 600 MG Tab PO SCH (14:23)
[2023-12-21] MEDS: Simethicone 80 MG Tab.Chew PO PRN (16:08)
[2023-12-21] MEDS: Ondansetron 4 MG Tab.DIS PO PRN (20:13)
[2023-12-21] MEDS: Acetaminophen/oxyCODONE 325-5 MG Tab PO PRN (20:20)
[2023-12-22 08:30] VITALS: BP 139/77; PULSE 64
== END 2023-12-22 11:37 | disposition home or self-care (01) | DRG 540 ==
LOC: JD.OB 11:48 → OBSVTOIN 12-20 12:59 → JD.OB 12-20 13:00 → OBSVTOIN 12-20 13:23 → INTOOBSV 12-20 13:23
PROVIDERS: ADMIT Obstetrics & Gynecology; ATTEND Obstetrics & Gynecology
PROC: 10D00Z1 Extraction of Products of Conception, Low, Open Approach (ICD-10-PCS; principal; 2023-12-20 12:30)
DX: O14.94 Unspecified pre-eclampsia, complicating childbirth (principal); Z37.0 Single live birth; Z3A.38 38 weeks gestation of pregnancy; O99.344 Other mental disorders complicating childbirth; F41.9 Anxiety disorder, unspecified; O90.81 Anemia of the puerperium; D62 Acute posthemorrhagic anemia
CPT/HCPCS: 01968; 36415; 51702; 59025; 80053; 82570; 84156; 85025; 85027; 85384; 85610; 85730; 86592; 86850; 86900; 86901; 99140; A9270-GY; J0456; J0665; J0690; J1100; J1790; J1885; J2274; J2300; J2371; J2405; J2765; J3010; J3490; J7050; J7120; J7121; J7999

== ENCOUNTER 2024-05-07 16:16 | Emergency (ER) | payer BC ==
[2024-05-07 17:41] LABS: BASOPHILS PERCENT AUTO 0.5 % (0.0-1.0); EOSINOPHILS ABSOLUTE AUTO 0.1 K/mm3 (0.0-0.4); EOSINOPHILS PERCENT AUTO 1.5 % (0.0-6.0); HEMOGLOBIN 12.2 gm/dl (12.0-16.0); IMMATURE GRAN ABSOLUTE AUTO 0.02 K/mm3 (0.00-0.05); IMMATURE GRAN PERCENT AUTO 0.2 % (0.0-0.4); LYMPHOCYTES ABSOLUTE AUTO 2.5 K/mm3 (1.0-4.8); LYMPHOCYTES PERCENT AUTO 28.5 % (24.0-44.0); MEAN CORPUSCULAR VOLUME 72.7 fl (83.0-99.0); MEAN PLATELET VOLUME 10.3 fl (9.4-12.3); MONOCYTES ABSOLUTE AUTO 0.4 K/mm3 (0.0-0.8); MONOCYTES PERCENT AUTO 4.4 % (0.0-8.0); NEUTROPHILS ABSOLUTE AUTO 5.6 K/mm3 (1.8-7.7); NEUTROPHILS PERCENT AUTO 64.9 % (41.0-71.0); PLATELET COUNT,PLT 314 K/mm3 (150-400); RED BLOOD CELL COUNT 5.09 M/mm3 (4.10-5.30); WHITE BLOOD CELL COUNT,WBC 8.61 K/mm3 (3.9-11.3)
[2024-05-07 18:24] LABS: A/G RATIO 1.1 (1-2); ALBUMIN 4.3 g/dl (3.4-5.0); ANION GAP 13.2 (5-15); BILIRUBIN TOTAL 0.3 mg/dL (0.2-1.0); BUN/CREATININE RATIO 18.6 (14-18); CALCIUM 9.7 mg/dL (8.5-10.1); CREATININE 0.7 mg/dL (0.55-1.02); EST CRCL DRUG DOSING (CG) 102.51 mL/min; POTASSIUM,K 4.2 mEq/L (3.5-5.1); PROTEIN TOTAL,TP 8.4 g/dl (6.4-8.2); TSH 1.467 uIU/mL (0.358-3.74)
[2024-05-07 19:06] VITALS: BP 130/74; PULSE 76
== END 2024-05-07 18:58 | disposition home or self-care (01) ==
LOC: JD.ED 16:16
DX: F41.9 Anxiety disorder, unspecified (principal); Z79.899 Other long term (current) drug therapy; Z86.16 Personal history of COVID-19
CPT/HCPCS: 36415; 80053; 84443; 85025; 99283; 99284